=== PATIENT | male | born 1960 | race Caucasian/White ===

== ENCOUNTER → 2016-07-02 | Outpatient (CLI) | payer MEDICARE ==
--- NOTE | 2016-07-03 08:05 | RADIOLOGY REPORT PS360 ---
CT ABD PELVIS W/ CONTRAST CLINICAL INDICATION: RIGHT GROIN PAIN, HX OF HERNIA ORDERING PHYSICIAN: ALINA SHAFFER MD PATIENT AGE: 55 years COMPARISON: None TECHNIQUE: Axial images obtained with sagittal and coronal reformats. PROCEDURE: Oral Contrast: None IV Contrast: 75 mL [id number] . FINDINGS: Coronary artery calcifications are present. Liver is unremarkable. A gallstone is present. Spleen is upper normal at 14 cm. No biliary dilatation. The pancreas and adrenal glands are unremarkable. No hydronephrosis, renal mass, or obstructing ureteral calculus. No intestinal obstruction or free air. No pelvic mass or abnormal fluid collection. There are postsurgical changes in the right inguinal area of prior hernia repair some minimal fascial thickening in the right inguinal region consistent with postsurgical change. No evidence of recurrent abdominal wall hernia. No abnormal fluid collections. No evidence of appendicitis or diverticulitis. No acute bony anomalies. IMPRESSION: 1. No acute intra-abdominal or pelvic pathology. 2. Cholelithiasis. 3. Postsurgical change from right inguinal hernia repair with no evidence of recurrent hernia.
== END ==
LOC: RAD 09:14
DX: R10.31 Right lower quadrant pain (principal)
CPT/HCPCS: Q9967

== ENCOUNTER 2016-09-22 07:15 | Day surgery (SDC) | payer MEDICARE ==
--- NOTE | 2016-09-22 08:22 | Operative Note ---
Upper GI Endoscopy Procedure date: 09/22/16 Date of : 56 Procedure:Upper GI Endoscopy Esophagogastroduodenoscopy with cold biopsies Indications: Mr. Pino is a 56-year-old gentleman who has had dyspepsia with epigastric and mid retrosternal pain and discomfort for the last 6-12 months. He has had bloating, gassiness and some belching. He reports pyrosis and some heartburn. He has some globus sensation. He reports early satiety but no true dysphagia. 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 He is followed routinely with his insecticide mixer Vick Godinez. The patient did have an EGD more than 10 years ago elsewhere. His colonoscopy was approximately 1 year ago in [place]. The patient did have a CAT scan of the abdomen on July 02, 2016 that showed gallstones but no other abdominal pathology. There was some postsurgical change from a RIGHT inguinal hernia repair. Performing Provider: Elias Fall MD Referring Provider: Stephane Hoffmann M.D./Manuel Birch M.D. Sedation: Fentanyl 100 mg IV/Versed 7 mg Procedure: Prior to the procedure, a history and physical exam was performed, and patients medications and allergies were reviewed. The risks and benefits of the procedure and the sedation options and risks were discussed with the patient. All questions were answered and informed consent was obtained. The patient was brought to the procedure room. Patient identification and proposed procedure were verified by the physician and the nurse. The patient was placed in a left lateral decubitus position and the scope was passed under direct vision. Throughout the procedure, the patient's blood pressure, pulse, and oxygen saturations were monitored continuously. The endoscope was introduced through the mouth, and advanced to the second part of duodenum. The upper GI endoscopy was accomplished without difficulty. The patient tolerated the procedure well. Findings: The scope was passed directly into the upper esophagus and advanced to the third portion of the duodenum. The post bulbar duodenum and duodenal bulb were normal with normal mucosa and conniventes. The scope was withdrawn through a normal duodenal bulb and pylorus into the stomach. There was linear erythema of the antrum and body of the stomach consistent with linear reactive gastritis. The remainder of the antrum, body and fundus of the stomach were grossly normal. Upon retroflexion there was no hiatal hernia. 2 biopsies were taken in the antrum and along the lesser curvature for histology and/or CLOtest. The scope was then withdrawn into the esophagus. There was no evidence of reflux esophagitis or Schatzki's ring. There was one tongue of salmon colored mucosa biopsied to rule out intestinal metaplasia. There were tertiary contractions and evidence of esophageal dysmotility with increased cricopharyngeal resting tone. The remainder of the esophageal mucosa was normal. Immediate complications: None EBL (ml): 0 Impression: 1. Nonerosive gastroesophageal reflux disease with esophageal dysmotility/ esophageal dyskinesia and increased cricopharyngeal resting tone 2. Mild linear reactive gastritis Recommendations: The patient does have functional dyspepsia. I will follow up the biopsies and discuss additional dietary measures, fiber bowel regimen and treatment options ( promotility therapy versus treatment for visceral sensitivity. at [id number]
[2016-09-22 15:48] VITALS: BP 167/85
== END 2016-09-22 10:00 | disposition home or self-care (01) ==
LOC: SDC 07:15
PROVIDERS: Internal Medicine Gastroenterology
PROC: 0DB78ZX Excision of Stomach, Pylorus, Via Natural or Artificial Opening Endoscopic, Diagnostic (ICD-10-PCS; 2016-09-22)
PROC: 0DB68ZX Excision of Stomach, Via Natural or Artificial Opening Endoscopic, Diagnostic (ICD-10-PCS; principal; 2016-09-22 08:00)
DX: K21.9 Gastro-esophageal reflux disease without esophagitis (principal); K22.4 Dyskinesia of esophagus; K29.60 Other gastritis without bleeding